=== PATIENT | female | born 1945 | race Caucasian/White ===

== ENCOUNTER 2024-02-20 13:42 | Inpatient (IN) | payer MEDICARE, OTHER ==
[~2024-02-20] VITALS: Ht 160 cm; Wt 62.6 kg
[2024-02-20 14:54] LABS: BASOPHILS % (AUTO) 0.5 % (0-1); EOSINOPHILS # (AUTO) 0.1 X10'3 (0-0.9); EOSINOPHILS % (AUTO) 0.8 % (0-6); HEMATOCRIT 43.7 % (35.0-45.0); HEMOGLOBIN 14.7 g/dl (12.0-16.0); LYMPHOCYTES # (AUTO) 1.9 X10'3 (1.1-4.8); LYMPHOCYTES % (AUTO) 21.1 % (21-51); MEAN CORPUSCULAR HEMOGLOBIN 30.6 PG (27.0-31.0); MEAN CORPUSCULAR HGB CONC 33.6 g/dL (33.0-36.5); MEAN PLATELET VOLUME 6.3 FL (7.4-10.4); MONOCYTES # (AUTO) 0.6 X10'3 (0-0.9); MONOCYTES % (AUTO) 6.3 % (2-12); NEUTROPHILS # (AUTO) 6.6 X10'3 (1.8-7.7); NEUTROPHILS % (AUTO) 71.3 % (42-75); PLATELET COUNT 342 X10'3 (140-440); RED CELL DISTRIBUTION WIDTH 12.7 % (11.5-14.5); WHITE BLOOD COUNT 9.2 X10'3 (4.5-11.0)
[2024-02-20 15:20] LABS: ALANINE AMINOTRANSFERASE 6 U/L (12-78); ALBUMIN 3.5 G/DL (3.4-5.0); ALBUMIN/GLOBULIN RATIO 0.9 (1.1-1.5); ALKALINE PHOSPHATASE 77 IU/L (46-116); ANION GAP 7 (8-16); ASPARTATE AMINO TRANSFERASE 27 U/L (10-37); BILIRUBIN,TOTAL 0.4 MG/DL (0.1-1.0); BLOOD UREA NITROGEN 9 MG/DL (7-18); CALCIUM 9.1 MG/DL (8.5-10.1); CHLORIDE 93 MMOL/L (99-107); CREATININE 0.69 MG/DL (0.40-0.90); GLUCOSE 151 MG/DL (70-104); PRO BRAIN NATRIURETIC PEPTIDE 100 PG/ML (0-450); SODIUM 128 MMOL/L (135-145); TOTAL CARBON DIOXIDE 28.1 MMOL/L (24-32); TOTAL PROTEIN 7.5 G/DL (6.4-8.2); eCRCL 54 ML/MIN; eGFR 82 ML/MIN
[2024-02-20] MEDS: potassium chloride 10mEq ER tablet PO SCH (15:53)
[2024-02-20] MEDS: potassium chloride 10mEq ER tablet PO STA (15:54)
[2024-02-20] MEDS: meclizine 12.5mg tablet PO ONE (16:27)
[2024-02-20] MEDS: normal saline 1000ML IV soln IVB ONE (16:27)
[2024-02-20 16:45] LABS: THYROID STIMULATING HORMONE 0.32 ulU/ml (0.34-4.50)
[2024-02-20] MEDS: aspirin 81mg tab.chew PO ONE (17:28)
[2024-02-20] MEDS: nitroGLYCERIN 0.4mg/hour patch TD ONE (17:28)
[2024-02-20] MEDS ORDERED: potassium Cl 40MEQ/1/2NS 520ml 520 ML IV PRN (18:00)
[2024-02-20] MEDS ORDERED: hydrALAZINE 20mg/ml inj. IV PRN (18:00)
[2024-02-20] MEDS ORDERED: magnesium sulf-water 4G/100mL 100 ML IV PRN (18:00)
[2024-02-20] MEDS ORDERED: potassium Cl 20 mEq SR tablet PO PRN (18:00)
[2024-02-20] MEDS ORDERED: ondansetron/PF 4mg/2ml inj IV PRN (18:00)
[2024-02-20] MEDS ORDERED: magnesium sulf-water 2g/50mL 50 ML IV PRN (18:00)
[2024-02-20] MEDS ORDERED: mag hydrox/Alum hydrox/simeth 30ml oral suspension PO PRN (18:00)
[2024-02-20] MEDS ORDERED: magnesium hydroxide 30ml (MOM) UD suspension PO PRN (18:00)
[2024-02-20] MEDS: PERFLUTREN PROTEIN-A MICROSPHR (Optison) 0.22 MG/ML 3ML VIAL IV ONE (18:18)
[2024-02-20 18:36] LABS: FREE T4 (FREE THYROXINE) 1.62 NG/DL (0.73-1.40)
[2024-02-20 19:08] LABS: APTT 28 SECONDS (22-32)
[2024-02-20] MEDS ORDERED: SYN0.088T PO (19:16)
[2024-02-20] MEDS ORDERED: CYAN100097 PO (19:16)
[2024-02-20] MEDS ORDERED: OMEP40CA21 PO (19:16)
[2024-02-20] MEDS ORDERED: FLUT1DIS14 INH (19:16)
[2024-02-20] MEDS ORDERED: CETI10CA PO (19:16)
[2024-02-20] MEDS ORDERED: ALBU18HF2 INH (19:16)
[2024-02-20] MEDS ORDERED: CHOL20004 PO (19:16)
[2024-02-20] MEDS ORDERED: ACET-1008 PO (19:16)
[2024-02-20] MEDS ORDERED: LOSA-416 PO (19:16)
[2024-02-20] MEDS: heparin 10,000 units/1 ML INJ IV ONE (19:56)
[2024-02-20] MEDS: heparin 25,000 UNIT/250ml bag 250 ML IV PRN (19:57)
[2024-02-20] MEDS: famotidine 20mg tablet PO ONE (19:59)
[2024-02-20] MEDS: MESSAGE TO NURSING IV ONE (19:59)
[2024-02-20] MEDS: docusate sod 100mg capsule PO SCH (20:00)
[2024-02-20] MEDS: K and/or MAG REPLACEMENT MC SCH (20:04)
[2024-02-20] MEDS: potassium Cl 20 mEq SR tablet PO PRN (20:04)
[2024-02-20 21:30] VITALS: BP 141/74; PULSE 73; RESP 17; TEMP 98.7; O2SAT 96
[2024-02-20] MEDS: losartan 50mg tablet PO SCH (22:26)
[2024-02-20] MEDS: acetaminophen 325mg tablet PO PRN (22:27)
[2024-02-21] VITALS (7 sets, daily range): BP systolic 109–146; BP diastolic 42–71; PULSE 75–85; RESP 15–18; TEMP 97.5–98.4; O2SAT 94–99
[2024-02-21] MEDS ORDERED: heparin, porcine 5000 units/ml vial SQ SCH
[2024-02-21 04:01] LABS: BASOPHILS # (AUTO) 0.1 X10'3 (0-0.2); BASOPHILS % (AUTO) 0.9 % (0-1); EOSINOPHILS # (AUTO) 0.1 X10'3 (0-0.9); HEMATOCRIT 38.9 % (35.0-45.0); HEMOGLOBIN 13.2 g/dl (12.0-16.0); LYMPHOCYTES # (AUTO) 3.1 X10'3 (1.1-4.8); LYMPHOCYTES % (AUTO) 44.2 % (21-51); MEAN CORPUSCULAR HEMOGLOBIN 30.8 PG (27.0-31.0); MEAN CORPUSCULAR VOLUME 90.6 FL (78-98); MEAN PLATELET VOLUME 6.2 FL (7.4-10.4); MONOCYTES # (AUTO) 0.6 X10'3 (0-0.9); MONOCYTES % (AUTO) 8.7 % (2-12); NEUTROPHILS # (AUTO) 3.1 X10'3 (1.8-7.7); NEUTROPHILS % (AUTO) 44.2 % (42-75); PLATELET COUNT 319 X10'3 (140-440); RED BLOOD COUNT 4.29 X10'6 (4.20-5.60); RED CELL DISTRIBUTION WIDTH 12.6 % (11.5-14.5)
[2024-02-21 04:20] LABS: ALANINE AMINOTRANSFERASE 16 U/L (12-78); ALBUMIN/GLOBULIN RATIO 0.9 (1.1-1.5); ALKALINE PHOSPHATASE 50 IU/L (46-116); ANION GAP 6 (8-16); ASPARTATE AMINO TRANSFERASE 16 U/L (10-37); BILIRUBIN,TOTAL 0.5 MG/DL (0.1-1.0); BLOOD UREA NITROGEN 6 MG/DL (7-18); BUN/CREATININE RATIO 10.5 (10.0-20.0); CALCIUM 8.8 MG/DL (8.5-10.1); CHLORIDE 98 MMOL/L (99-107); CREATININE 0.57 MG/DL (0.40-0.90); GLUCOSE 97 MG/DL (70-104); MAGNESIUM 1.9 MG/DL (1.5-2.4); POTASSIUM 3.6 MMOL/L (3.5-5.1); SODIUM 132 MMOL/L (135-145); TOTAL CARBON DIOXIDE 28.1 MMOL/L (24-32); TOTAL PROTEIN 6.3 G/DL (6.4-8.2); eCRCL 65 ML/MIN; eGFR > 90 ML/MIN
[2024-02-21] MEDS: MESSAGE TO NURSING IV ONE ×4 (04:55→23:26)
[2024-02-21] MEDS ORDERED: cetirizine 10mg tablet PO SCH (07:50)
[2024-02-21] MEDS: HYDROchlorothiazide 25mg tablet PO SCH (08:00)
[2024-02-21] MEDS ORDERED: aminophylline 250mg/10ml inj. IV PRN (08:55)
[2024-02-21] MEDS ORDERED: nitroGLYCERIN 0.4mg SUBLingual tab SL PRN (08:55)
[2024-02-21] MEDS ORDERED: metoprolol tartrate 1mg/ml inj IV PRN (08:55)
[2024-02-21] MEDS ORDERED: FLU VACC TS2024-25(6MOS UP)/PF 45 MCG/0.5 ML SYRINGE IMVAC ONE (10:00)
[2024-02-21] MEDS: pantoprazole 40mg Tablet.DR PO SCH (16:29)
[2024-02-21] MEDS: cyanocobalamin 500mcg tablet PO SCH (16:29)
[2024-02-21] MEDS: heparin 10,000 units/1 ML INJ IV PRN (23:21)
[2024-02-22] VITALS (13 sets, daily range): BP systolic 104–180; BP diastolic 52–82; PULSE 82–115; RESP 12–19; TEMP 98.2–98.7; O2SAT 93–97
[2024-02-22 07:38] LABS: BASOPHILS % (AUTO) 0.8 % (0-1); EOSINOPHILS # (AUTO) 0.2 X10'3 (0-0.9); EOSINOPHILS % (AUTO) 2.8 % (0-6); HEMATOCRIT 40.4 % (35.0-45.0); HEMOGLOBIN 13.8 g/dl (12.0-16.0); LYMPHOCYTES # (AUTO) 2.4 X10'3 (1.1-4.8); LYMPHOCYTES % (AUTO) 39.7 % (21-51); MEAN CORPUSCULAR HEMOGLOBIN 30.9 PG (27.0-31.0); MEAN CORPUSCULAR HGB CONC 34.1 g/dL (33.0-36.5); MEAN CORPUSCULAR VOLUME 90.7 FL (78-98); MEAN PLATELET VOLUME 6.6 FL (7.4-10.4); MONOCYTES # (AUTO) 0.6 X10'3 (0-0.9); MONOCYTES % (AUTO) 9.7 % (2-12); NEUTROPHILS # (AUTO) 2.9 X10'3 (1.8-7.7); PLATELET COUNT 335 X10'3 (140-440); RED BLOOD COUNT 4.45 X10'6 (4.20-5.60); RED CELL DISTRIBUTION WIDTH 12.8 % (11.5-14.5); WHITE BLOOD COUNT 6.1 X10'3 (4.5-11.0)
[2024-02-22] MEDS: regadenoson 0.4mg/5ml syringe IV PRN (07:49)
[2024-02-22 08:13] LABS: ALANINE AMINOTRANSFERASE 16 U/L (12-78); ALBUMIN 3.1 G/DL (3.4-5.0); ALBUMIN/GLOBULIN RATIO 0.9 (1.1-1.5); ALKALINE PHOSPHATASE 57 IU/L (46-116); ANION GAP 8 (8-16); ASPARTATE AMINO TRANSFERASE 10 U/L (10-37); BILIRUBIN,TOTAL 0.3 MG/DL (0.1-1.0); BLOOD UREA NITROGEN 9 MG/DL (7-18); BUN/CREATININE RATIO 14.1 (10.0-20.0); CALCIUM 9.5 MG/DL (8.5-10.1); CHLORIDE 100 MMOL/L (99-107); CREATININE 0.64 MG/DL (0.40-0.90); GLUCOSE 102 MG/DL (70-104); MAGNESIUM 2.1 MG/DL (1.5-2.4); POTASSIUM 3.7 MMOL/L (3.5-5.1); SODIUM 135 MMOL/L (135-145); TOTAL CARBON DIOXIDE 27.2 MMOL/L (24-32); TOTAL PROTEIN 6.6 G/DL (6.4-8.2); eCRCL 58 ML/MIN; eGFR 89 ML/MIN
[2024-02-22] MEDS: MESSAGE TO NURSING IV ONE (08:50)
[2024-02-22] MEDS ORDERED: LEVO50TA8 PO (10:37)
[2024-02-22] MEDS ORDERED: METO-395 PO (10:38)
[2024-02-22] MEDS: levoTHYROXINE 25mcg tablet PO SCH (11:25)
== END 2024-02-22 13:00 | disposition home or self-care (01) | DRG 640 ==
LOC: ER 13:43 → ED HOLD 18:05 → PCU 3S 21:30
PROVIDERS: ADMIT Family Medicine; ATTEND Family Medicine
PROC: 4A02XM4 Measurement of Cardiac Total Activity, External Approach (ICD-10-PCS; principal; 2024-02-22)
PROC: 3E033HZ Introduction of Radioactive Substance into Peripheral Vein, Percutaneous Approach (ICD-10-PCS; 2024-02-22)
PROC: 3E02340 Introduction of Influenza Vaccine into Muscle, Percutaneous Approach (ICD-10-PCS; 2024-02-22)
DX: E87.1 Hypo-osmolality and hyponatremia (principal); I21.4 Non-ST elevation (NSTEMI) myocardial infarction; I16.1 Hypertensive emergency; E87.6 Hypokalemia; Z66 Do not resuscitate; I10 Essential (primary) hypertension; E89.0 Postprocedural hypothyroidism; I73.9 Peripheral vascular disease, unspecified; J45.909 Unspecified asthma, uncomplicated; K21.9 Gastro-esophageal reflux disease without esophagitis; G89.29 Other chronic pain; M54.9 Dorsalgia, unspecified; Z90.710 Acquired absence of both cervix and uterus; Z87.891 Personal history of nicotine dependence; Z23 Encounter for immunization
CPT/HCPCS: 36415; 70450; 71045; 80053; 83735; 83880; 84439; 84443; 84484; 85025; 85610; 85730; 87081; 93005; 93017; 93306; 97161; 97530; 99285; G0378; J1644; J2785; J7030; J8597

== ENCOUNTER 2024-06-16 01:06 | Observation (INO) | payer MEDICARE, OTHER ==
[~2024-06-16] VITALS: Ht 160 cm; Wt 60.0 kg
[~2024-06-16 01:06] MED LIST: ACET-1008 PO; ALBU18HF2 INH; CETI10CA PO; CHOL20004 PO; CYAN100097 PO; FLUT1DIS14 INH; LEVO50TA8 PO; LOSA-416 PO; METO-395 PO; OMEP40CA21 PO
[2024-06-16 02:08] LABS: BASOPHILS # (AUTO) 0.1 X10'3 (0-0.2); BASOPHILS % (AUTO) 0.7 % (0-1); EOSINOPHILS # (AUTO) 0.2 X10'3 (0-0.9); EOSINOPHILS % (AUTO) 2.1 % (0-6); HEMATOCRIT 41.9 % (35.0-45.0); HEMOGLOBIN 14.1 g/dl (12.0-16.0); LYMPHOCYTES % (AUTO) 36.4 % (21-51); MEAN CORPUSCULAR HEMOGLOBIN 30.8 PG (27.0-31.0); MEAN CORPUSCULAR HGB CONC 33.7 g/dL (33.0-36.5); MEAN CORPUSCULAR VOLUME 91.3 FL (78-98); MEAN PLATELET VOLUME 6.3 FL (7.4-10.4); MONOCYTES # (AUTO) 0.7 X10'3 (0-0.9); MONOCYTES % (AUTO) 9.1 % (2-12); NEUTROPHILS # (AUTO) 4.2 X10'3 (1.8-7.7); NEUTROPHILS % (AUTO) 51.7 % (42-75); PLATELET COUNT 354 X10'3 (140-440); RED BLOOD COUNT 4.59 X10'6 (4.20-5.60); RED CELL DISTRIBUTION WIDTH 12.6 % (11.5-14.5); WHITE BLOOD COUNT 8.2 X10'3 (4.5-11.0)
[2024-06-16 02:31] LABS: ALANINE AMINOTRANSFERASE 21 U/L (12-78); ALBUMIN 3.6 G/DL (3.4-5.0); ALBUMIN/GLOBULIN RATIO 0.9 (1.1-1.5); ALKALINE PHOSPHATASE 101 IU/L (46-116); ANION GAP 4 (8-16); ASPARTATE AMINO TRANSFERASE 15 U/L (10-37); BILIRUBIN,TOTAL 0.3 MG/DL (0.1-1.0); BLOOD UREA NITROGEN 13 MG/DL (7-18); BUN/CREATININE RATIO 21.3 (10.0-20.0); CALCIUM 9.4 MG/DL (8.5-10.1); CHLORIDE 99 MMOL/L (99-107); CREATININE 0.61 MG/DL (0.40-0.90); GLUCOSE 102 MG/DL (70-104); LIPASE 53 U/L (16-77); POTASSIUM 3.1 MMOL/L (3.5-5.1); SODIUM 135 MMOL/L (135-145); TOTAL CARBON DIOXIDE 32.2 MMOL/L (24-32); TOTAL PROTEIN 7.4 G/DL (6.4-8.2); eCRCL 61 ML/MIN; eGFR > 90 ML/MIN
[2024-06-16] MEDS ORDERED: iohexol 300mg/ml 100ml inj. ONE (02:33)
[2024-06-16 03:55] LABS: BILIRUBIN,URINE NEGATIVE (Neg); CLARITY,URINE CLEAR (Clear); COLOR,URINE YELLOW (Yellow); GLUCOSE, URINE NEGATIVE (Neg); KETONES,URINE NEGATIVE (Neg); LEUKOCYTE ESTERASE ,URINE NEGATIVE (Neg); OCCULT BLOOD,URINE NEGATIVE (Neg); PROTEIN,URINE NEGATIVE (Neg); UROBILINOGEN,URINE 0.2 E.U/dL (0.2-1.0)
[2024-06-16 03:56] LABS: NITRITES, URINE NEGATIVE (Neg); UA COLLECTION TYPE CLN CATCH MIDSTREAM
[2024-06-16] MEDS: potassium Cl 20 mEq SR tablet PO STA (05:48)
[2024-06-16] MEDS ORDERED: morphine 2 MG/ML inj. syringe IV PRN ×2 (07:45)
[2024-06-16] MEDS ORDERED: magnesium sulf-water 2g/50mL 50 ML IV PRN (07:45)
[2024-06-16] MEDS ORDERED: magnesium Cl slow-release 64mg tablet PO PRN (07:45)
[2024-06-16] MEDS ORDERED: mag hydrox/Alum hydrox/simeth 30ml oral suspension PO PRN (07:45)
[2024-06-16] MEDS ORDERED: ondansetron/PF 4mg/2ml inj IV PRN (07:45)
[2024-06-16] MEDS ORDERED: potassium Cl 20 mEq SR tablet PO PRN (07:45)
[2024-06-16] MEDS ORDERED: potassium Cl 40MEQ/1/2NS 520ml 520 ML IV PRN (07:45)
[2024-06-16] MEDS ORDERED: magnesium sulf-water 4G/100mL 100 ML IV PRN (07:45)
[2024-06-16] MEDS: K and/or MAG REPLACEMENT MC SCH (08:00)
[2024-06-16 08:13] LABS: MAGNESIUM 1.8 MG/DL (1.5-2.4); PHOSPHORUS 3.5 MG/DL (2.3-4.5)
[2024-06-16] MEDS: pantoprazole 40 MG vial IV SCH (09:05)
[2024-06-16] MEDS: CefTRIAXone/D5W-Rocephin 1gm 50 ML IV SCH (09:11)
[2024-06-16] MEDS: normal saline 1000ml 1,000 ML IV SCH (09:12)
[2024-06-16] MEDS: potassium Cl 20 mEq SR tablet PO PRN (09:14)
[2024-06-16 12:00] VITALS: BP 161/69; PULSE 89; RESP 16; TEMP 98.8; O2SAT 97
[2024-06-16] MEDS: acetaminophen 325mg tablet PO PRN (16:03)
[2024-06-16 18:00] VITALS: BP 158/54; PULSE 77; RESP 14; TEMP 97.5; O2SAT 97
[2024-06-16 20:00] VITALS: RESP 14; O2SAT 97
[2024-06-16 22:00] VITALS: BP 150/67; PULSE 76; RESP 14; TEMP 96.8; O2SAT 94
[2024-06-17 06:00] VITALS: BP 146/62; PULSE 75; RESP 16; TEMP 97.8; O2SAT 96
[2024-06-17 06:39] LABS: BASOPHILS # (AUTO) 0.1 X10'3 (0-0.2); BASOPHILS % (AUTO) 0.8 % (0-1); EOSINOPHILS # (AUTO) 0.2 X10'3 (0-0.9); EOSINOPHILS % (AUTO) 2.1 % (0-6); HEMATOCRIT 39.6 % (35.0-45.0); HEMOGLOBIN 13.6 g/dl (12.0-16.0); LYMPHOCYTES # (AUTO) 2.1 X10'3 (1.1-4.8); LYMPHOCYTES % (AUTO) 26.7 % (21-51); MEAN CORPUSCULAR HEMOGLOBIN 31.6 PG (27.0-31.0); MEAN CORPUSCULAR HGB CONC 34.3 g/dL (33.0-36.5); MEAN CORPUSCULAR VOLUME 92.1 FL (78-98); MEAN PLATELET VOLUME 7.2 FL (7.4-10.4); MONOCYTES # (AUTO) 0.7 X10'3 (0-0.9); MONOCYTES % (AUTO) 8.5 % (2-12); NEUTROPHILS # (AUTO) 4.9 X10'3 (1.8-7.7); NEUTROPHILS % (AUTO) 61.9 % (42-75); PLATELET COUNT 372 X10'3 (140-440); RED CELL DISTRIBUTION WIDTH 12.6 % (11.5-14.5); WHITE BLOOD COUNT 7.9 X10'3 (4.5-11.0)
[2024-06-17 08:58] LABS: ALANINE AMINOTRANSFERASE 15 U/L (12-78); ALBUMIN 3.2 G/DL (3.4-5.0); ALBUMIN/GLOBULIN RATIO 0.8 (1.1-1.5); ALKALINE PHOSPHATASE 67 IU/L (46-116); ANION GAP 3 (8-16); ASPARTATE AMINO TRANSFERASE 18 U/L (10-37); BILIRUBIN,TOTAL 0.3 MG/DL (0.1-1.0); BLOOD UREA NITROGEN 5 MG/DL (7-18); BUN/CREATININE RATIO 7.9 (10.0-20.0); CALCIUM 8.9 MG/DL (8.5-10.1); CHLORIDE 103 MMOL/L (99-107); CREATININE 0.63 MG/DL (0.40-0.90); GLUCOSE 94 MG/DL (70-104); POTASSIUM 4.8 MMOL/L (3.5-5.1); SODIUM 136 MMOL/L (135-145); TOTAL CARBON DIOXIDE 30.5 MMOL/L (24-32); eCRCL 59 ML/MIN; eGFR > 90 ML/MIN
[2024-06-17 09:30] VITALS: RESP 16; O2SAT 96
[2024-06-17 10:00] VITALS: BP 150/76; PULSE 80; RESP 16; TEMP 98; O2SAT 98
== END 2024-06-17 12:46 | disposition home or self-care (01) ==
LOC: ER 01:07 → ED HOLD 07:46 → ORTHO 4S 11:05
PROVIDERS: ADMIT Internal Medicine; ATTEND Internal Medicine
DX: A05.9 Bacterial foodborne intoxication, unspecified (principal); R11.0 Nausea; K21.9 Gastro-esophageal reflux disease without esophagitis; I10 Essential (primary) hypertension; E03.9 Hypothyroidism, unspecified; J44.9 Chronic obstructive pulmonary disease, unspecified; Z79.899 Other long term (current) drug therapy; Z98.890 Other specified postprocedural states
CPT/HCPCS: 74177; 80053; 81003; 83605; 83690; 83735; 84100; 84484; 93005; 96361; 96365; 96375; 99285; G0378; J2470; 36415; 85025; 87081; 96376; J0696; J7030; Q9967